=== PATIENT | male | born 1960 | race Caucasian/White ===

== ENCOUNTER 2016-08-23 12:25 | Emergency (ER) | payer OTHER ==
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
--- NOTE | 2016-08-23 14:10 | ED NURSING NOTES ---
Clinical Report - Nurses [facility] [address] [place] [address] 08/23/2016 12:29 Patient: TERRI LEAL TRIAGE Acuity: LEVEL 3. Chief Complaint: COUGH, RUNNY NOSE and SORE THROAT. Alert. No acute distress. SEPSIS SCREEN: Sepsis Screen. Negative (no infection suspected/documented). --13:08 Ana Hess R.N. 13:02 08/23/16. BP: 167/97. HR: 73. RR: 20. O2 saturation: 100%. Temp: 98.2 F (oral). --13:08 Ana Hess R.N. Weight: 104.3 kg stated. Height/Length: 69 inches Per Patient. BMI: 34. --13:07 Ana Hess R.N. Medications None. --13:03 Ana Hess R.N. Medication/allergy information source: the patient. --13:08 Ana Hess R.N. Allergies No Known Drug Allergy. --13:03 Ana Hess R.N. History Arrived by private vehicle, and accompanied by friend. Primary physician ([facility]). Onset. (4 days ago). ( Pt stating he need pain medication and he is not getting any pain medication from any of the doctors he has been seeing. He states he "Hurts all over. I am tired of being treated by incompetent people." Pt is very uncooperative and angry. Pt is swearing and refusing to get into gown.). Reports muscle aches. He has had a headache. PAST MEDICAL HX: Immunizations: seasonal influenza. SOCIAL HX: Never smoker. No alcohol use or drug use. FALL RISK ASSESSMENT: Fall risk assessment completed. No fall risk identified. NUTRITIONAL RISK ASSESSMENT: The nutritional risk assessment revealed no deficiencies. FUNCTIONAL ASSESSMENT: Functional assessment: no impairments noted. LEARNING NEEDS ASSESSMENT: The learning needs assessment revealed no barriers. SKIN INTEGRITY ASSESSMENT: Skin integrity risk assessment completed. No skin integrity risk identified. --13:08 Ana Hess R.N. PROBLEMS: Depression. Hypertension. Knee Injury. Knee Effusion. --13:03 Ana Hess R.N. Interventions ID band on patient. To treatment room. --13:08 Ana Hess R.N. PHYSICAL ASSESSMENT 13:08/23/16. Ambulatory to room. GENERAL / NEURO / PSYCH: The patient is awake, alert and in no distress. He is oriented, hostile and combative and appears agitated. HEENT: Voice within normal limits. Mucous membranes are pink. RESPIRATORY: Respirations not labored. CVS: Capillary refill less than 2 seconds. SKIN: Skin is warm and dry. Normal skin turgor. --13:09 Ana Hess R.N. NURSING PROGRESS NOTES 13:08/23/16. Patient refused to place gown on. Call light placed in reach. Patient placed in chair. Patient ready for evaluation- chart flagged. --13:09 Ana Hess R.N. 14:10 08/23/2016 Azithromycin PO 500 mg given. Allergies verified and confirmed 5 rights. --14:20 Ana Hess R.N. DISPOSITION / DISCHARGE Departure time: 14:15 Aug 23 2016. Condition at departure: improved and stable. No learning barriers present. Reviewed medication(s) side effects, precautions, dosing and course information. Prescription(s) given to the patient. Patient verbalized understanding. Written instructions provided in Luxembourgish. The patient was discharged by the physician. He was discharged home. He left the Emergency Department ambulatory and via private vehicle. --14:38 Ana Hess R.N. 14:35 08/23/16. BP: 159/99. HR: 65. RR: 18. O2 saturation: 100% on room air. Temp: 98.8 F (oral). --14:38 Ana Hess R.N. Locked/Released at 08/23/2016 14:38 by Ana Hess R.N.
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
--- NOTE | 2016-08-23 14:10 | ED ORDER SUMMARY ---
..... Patient: TERRI LEAL OrderSheet [facility] VisitID: [id number] [address] [place] [address] 56y, M Registration Date/Time: 08/23/2016 ORDER SHEET Weight: 104.3 kg (stated) Allergies: No Known Drug Allergy GENERAL ORDERS: Rapid Influenza Screen (Nasal Pharyngeal) (VIDEO GAME DEVELOPER swab) Urgent (13:33 08/23/2016 [facility]) (Ack 13:55 LTapper) (14:02 MWinterer R.N.) Culture, Strep Screen Urgent (13:33 08/23/2016 [facility]) (Ack 13:55 LTapper) (14:02 MWinterer R.N.) Chest 2V Urgent (13:47 08/23/2016 [facility]) (Ack 13:55 LTapper) (14:05 MWinterer R.N.) MEDICATION ORDERS: Azithromycin PO 500 mg (NOW) [facility] (Ack 14:08 MWinterer R.N.) (14:20 MWinterer R.N.) IV FLUIDS: ORDER SHEET NOTES: [Electronically signed by Ana Hess R.N. (14:38 08/23/2016)] [Electronically signed by Juarez Randhawa DO (16:25 08/23/2016)] [Electronically locked/signed by Ana Hess R.N. (14:38 08/23/2016)]
--- NOTE | 2016-08-23 14:10 | ED ORDER SUMMARY ---
..... Patient: TERRI LEAL OrderSheet [facility] VisitID: [id number] [address] [place] [address] 56y, M Registration Date/Time: 08/23/2016 ORDER SHEET Weight: 104.3 kg (stated) Allergies: No Known Drug Allergy GENERAL ORDERS: Rapid Influenza Screen (Nasal Pharyngeal) (ANIMAL NUTRITIONIST swab) Urgent (13:33 08/23/2016 [facility]) (Ack 13:55 LTapper) (14:02 MWinterer R.N.) Culture, Strep Screen Urgent (13:33 08/23/2016 [facility]) (Ack 13:55 LTapper) (14:02 MWinterer R.N.) Chest 2V Urgent (13:47 08/23/2016 [facility]) (Ack 13:55 LTapper) (14:05 MWinterer R.N.) MEDICATION ORDERS: Azithromycin PO 500 mg (NOW) (14:08 08/23/2016 [facility] (Ack 14:08 MWinterer R.N.) (14:20 MWinterer R.N.) IV FLUIDS: ORDER SHEET NOTES: [Electronically signed by Ana Hess R.N. (14:38 08/23/2016)] [Electronically signed by Juarez Randhawa DO (16:25 08/23/2016)] [Electronically locked/signed by Ana Hess R.N. (14:38 08/23/2016)]
--- NOTE | 2016-08-23 15:16 | DIAGNOSTIC IMAGING REPORT ---
PROCEDURE: XR CHEST 2 VIEW INDICATION: COUGH, initial encounter TECHNIQUE: PA and lateral view. COMPARISON: None. FINDINGS: Lungs are clear. Right pleural thickening. Median sternotomy. Bony thorax is unremarkable. IMPRESSION: 1. No acute changes 2. Median sternotomy
--- NOTE | 2016-08-23 16:25 | ED DISCHARGE INSTRUCTIONS ---
Patient: TERRI LEAL General Instructions [facility] VisitID: [id number] [address] [place] [address] 56y, M Registration Date/Time: 08/23/2016 Moderate dental pain. Acute viral pharyngitis Acute viral (presumed) rhinitis and sinusitis. Psychophysiologic insomnia. INSTRUCTIONS Do not work for three days. Drink plenty of fluids. No alcohol until released. Warnings: Further evaluation is necessary in order to recheck abnormal lab, obtain test results, conduct further tests and assess the possibility of serious illness. It is very important to follow up with a physician. CONTROLLED SUBSTANCE WARNINGS. GENERAL WARNINGS: Return or contact your physician immediately if your condition worsens or changes unexpectedly, if not improving as expected, or if other problems arise. Prescription Medications: Hydrocodone/APAP 5mg / 325mg: take 1 orally every 8 hours as needed for pain. Dispense five (5). No refill. Zithromax 250 mg tablets: take 1 orally every day for 4 days. No refills. Substitution is permissible. Ambien 10 mg: take 1 orally at bedtime as needed for sleep. Dispense five (5). No refill. Substitution is permissible. OTC Medications: Motrin (available over the counter): take according to label instructions. Follow-up: Follow up with a dentist and an oral surgeon in about three days. Follow-up with: [facility], , , [address] [place] [address], , [place], ; [facility], , , [address], [place], [id number] Follow up in about three days. ADDITIONAL INFORMATION Dental Pain A crack or cavity in the tooth, which exposes the sensitive inner area of the tooth can cause tooth pain. An infection in the gum or the root of the tooth can cause pain and swelling. The pain is often made worse by drinking hot or cold fluids, or biting on hard foods. Pain may spread from the tooth to the ear or jaw on the same side. Home Care: Avoid hot and cold foods and liquids since your tooth may be sensitive to temperature changes. If your tooth is chipped or cracked, or if there is a large open cavity, apply OIL OF CLOVES (available qvnv-fly-aadshgi in drug stores) directly to the tooth to reduce pain. Some pharmacies carry an zwbv-ghs-ekqloln "toothache kit." This contains a paste, which can be applied over the exposed tooth to decrease sensitivity. A cold pack on your jaw over the sore area may help reduce pain. You may use acetaminophen (Tylenol) or ibuprofen (Motrin, Advil) to control pain, unless another medicine was prescribed. [ NOTE: If you have chronic liver or kidney disease or ever had a stomach ulcer or GI bleeding, talk with your doctor before using these medicines.] If you have signs of an infection, an antibiotic will be given. Take it as directed. Follow-Up as directed with a dentist. Your pain may go away with the treatment given. However, only a dentist can fully evaluate and treat the cause and prevent the pain from coming back again. TOOTHACHE IS A SIGN OF DISEASE IN YOUR TOOTH AND SHOULD BE EXAMINED AND TREATED BY A DENTIST. Get Prompt Medical Attention if any of the following occur: Your face becomes swollen or red Pain worsens or spreads to the neck Fever over 100.4 F (38.0 C) Unusual drowsiness; headache or stiff neck; weakness or fainting Pus drains from the tooth Difficulty swallowing or breathing Pharyngitis: Strep [Confirmed] Your test for strep throat was positive. Strep throat is a contagious illness. It is spread by coughing, kissing or by touching others after touching your mouth or nose. Symptoms include throat pain which is worse with swallowing, aching all over, headache and fever. You will be treated with an antibiotic which should make you start to feel better within 1-2 days. Home Care: Rest at home and drink plenty of fluids to avoid dehydration. No school or work for the first two days on antibiotics. You will not be contagious after this time and if you are feeling better, you can return to school or work. Take your antibiotics for a full 10 days, even if you feel better after the first few days of treatment. This is very important to prevent heart or kidney disease that can result as a complication of untreated strep throat infection. Children: Use acetaminophen (Tylenol) for fever, fussiness or discomfort. In infants over six months of age, you may use ibuprofen (Children's Motrin) instead of Tylenol. [NOTE: If your child has chronic liver or kidney disease or ever had a stomach ulcer or GI bleeding, talk with your doctor before using these medicines.] (Aspirin should never be used in anyone under 18 years of age who is ill with a fever. It may cause severe liver damage.)Adults: You may use acetaminophen (Tylenol) or ibuprofen (Motrin, Advil) to control pain or fever, unless another medicine was prescribed for this. [NOTE: If you have chronic liver or kidney disease or ever had a stomach ulcer or GI bleeding, talk with your doctor before using these medicines.] Throat lozenges or sprays (Chloraseptic and others) will reduce pain. Gargling with warm salt water will also reduce throat pain. Dissolve 1/2 teaspoon of salt in 1 glass of warm water. This is especially useful just before meals. Follow Up with your doctor or as directed by our staff if you are not improving over the next week. Get Prompt Medical Attention if any of the following occur: Fever of 100.4F (38C) oral or higher, not better with fever medication New or worsening ear pain, sinus pain or headache Painful lumps in the back of your neck Unable to swallow liquids or open your mouth wide due to throat pain Trouble breathing or noisy breathing Muffled voice New rash Viral Respiratory Illness [Adult] You have an Upper Respiratory Illness (URI) caused by a virus. This illness is contagious during the first few days. It is spread through the air by coughing and sneezing or by direct contact (touching the sick person and then touching your own eyes, nose or mouth). Most viral illnesses go away within 7-10 days with rest and simple home remedies. Sometimes, the illness may last for several weeks. Antibiotics will not kill a virus and are generally not prescribed for this condition. Home Care: 1) If symptoms are severe, rest at home for the first 2-3 days. When you resume activity, don't let yourself get too tired. 2) Avoid being exposed to cigarette smoke (yours or others). 3) Tylenol (acetaminophen) or ibuprofen (Advil, Motrin) will help fever, muscle aching and headache. (Persons under 18 with fever should not take aspirin since this may cause liver damage.) 4) Your appetite may be poor, so a light diet is fine. Avoid dehydration by drinking 6-8 glasses of fluids per day (water, soft drinks, juices, tea, soup). Extra fluids will help loosen secretions in the nose and lungs. 5) Djxj-vfw-utfuyzr cold medicines will not shorten the length of time youre sick, but they may be helpful for the following symptoms: cough (Robitussin DM); sore throat (Chloraseptic lozenges or spray); nasal and sinus congestion (Actifed, Sudafed, Chlortrimeton). Follow Up with your doctor or as advised if you dont improve over the next week. Get Prompt Medical Attention if any of the following occur: -- Cough with lots of colored sputum (mucus) or blood in your sputum -- Chest pain, shortness of breath, wheezing or have trouble breathing -- Severe headache; face, neck or ear pain -- Fever over 100.4 F (38.0 C) for more than three days -- You cant swallow due to throat pain Insomnia Insomnia refers to a difficulty going to sleep or staying asleep, or both. Insomnia has many causes, including anxiety, stress, depression, chronic pain, sleeping cycles out of balance due to working night shifts or excess napping during the day, and a condition called sleep apnea. Insomnia can be a side effect from stimulant medicines such as decongestants, asthma inhalers and pills, diet pills, and illegal drugs such as speed, crank, crack, and PCP. Home Care: Review your medicines with your doctor or pharmacist to find out if they can cause insomnia. Caffeine, smoking and alcohol also affect sleep. Limit your daily use and do not use these before bedtime. Alcohol may make you sleepy at first, but as its effects wear off, you may awaken a few hours later and have trouble returning to sleep. Do not exercise, eat or drink large amounts of liquid within 2 hours of your bedtime. Improve your sleep habits. Have a fixed bed and wake-up time. Try to keep noise, light and heat in your bedroom at a comfortable level. Try using earplugs or eyeshades if needed. Avoid watching TV in bed. If you do not fall asleep within 30 minutes, try to relax by reading or listening to soft music. Limit daytime napping to one 30 minute period, early in the day. Get regular exercise. Find other ways to lessen your stress level. If a medicine was prescribed to help reset your sleep patterns, take it as directed. Sleeping pills are intended for short-term use, only. If taken for too long, the effect wears off while the risk of physical addiction and psychological dependence increases. Follow-Up with your doctor or as directed by our staff if you feel that your insomnia is not responding to the above measures. Get Prompt Medical Attention if any of the following occur: Extreme restlessness or irritability Confusion or hallucinations (seeing or hearing things that are not there) Anxiety, depression Several days without sleeping Azithromycin Oral tablet What is this medicine? AZITHROMYCIN (az ith yovani MYE sin) is a macrolide antibiotic. It is used to treat or prevent certain kinds of bacterial infections. It will not work for colds, flu, or other viral infections. How should I use this medicine? Take this medicine by mouth with a full glass of water. Follow the directions on the prescription label. The tablets can be taken with food or on an empty stomach. If the medicine upsets your stomach, take it with food. Take your medicine at regular intervals. Do not take your medicine more often than directed. Take all of your medicine as directed even if you think your are better. Do not skip doses or stop your medicine early. Talk to your volunteer patient representative regarding the use of this medicine in children. Special care may be needed. What side effects may I notice from receiving this medicine? Side effects that you should report to your doctor or health home care and home health aides teacher as soon as possible: allergic reactions like skin rash, itching or hives, swelling of the face, lips, or tongue confusion, nightmares or hallucinations dark urine difficulty breathing hearing loss irregular heartbeat or chest pain pain or difficulty passing urine redness, blistering, peeling or loosening of the skin, including inside the mouth white patches or sores in the mouth yellowing of the eyes or skin Side effects that usually do not require medical attention (report to your doctor or health home care and home health aides teacher if they continue or are bothersome): diarrhea dizziness, drowsiness headache stomach upset or vomiting tooth discoloration vaginal irritation What may interact with this medicine? Do not take this medicine with any of the following medications: lincomycin This medicine may also interact with the following medications: amiodarone antacids cyclosporine digoxin magnesium nelfinavir phenytoin warfarin What if I miss a dose? If you miss a dose, take it as soon as you can. If it is almost time for your next dose, take only that dose. Do not take double or extra doses. Where should I keep my medicine? Keep out of the reach of children. Store at room temperature between 15 and 30 degrees C (59 and 86 degrees F). Throw away any unused medicine after the expiration date. What should I tell my health care provider before I take this medicine? They need to know if you have any of these conditions: kidney disease liver disease irregular heartbeat or heart disease an unusual or allergic reaction to azithromycin, erythromycin, other macrolide antibiotics, foods, dyes, or preservatives or trying to get breast-feeding What should I watch for while using this medicine? Tell your doctor or health home care and home health aides teacher if your symptoms do not improve. Do not treat diarrhea with over the counter products. Contact your doctor if you have diarrhea that lasts more than 2 days or if it is severe and watery. This medicine can make you more sensitive to the sun. Keep out of the sun. If you cannot avoid being in the sun, wear protective clothing and use sunscreen. Do not use sun lamps or tanning beds/booths. Zolpidem Tartrate Oral tablet What is this medicine? ZOLPIDEM (zole PI dem) is used to treat insomnia. This medicine helps you to fall asleep and sleep through the night. How should I use this medicine? Take this medicine by mouth with a glass of water. Follow the directions on the prescription label. It is better to take this medicine on an empty stomach and only when you are ready for bed. Do not take your medicine more often than directed. If you have been taking this medicine for several weeks and suddenly stop taking it, you may get unpleasant withdrawal symptoms. Your doctor or health home care and home health aides teacher may want to gradually reduce the dose. Do not stop taking this medicine on your own. Always follow your doctor or health home care and home health aides teacher's advice. A special MedGuide will be given to you by the pharmacist with each prescription and refill. Be sure to read this information carefully each time. Talk to your volunteer patient representative regarding the use of this medicine in children. Special care may be needed. What side effects may I notice from receiving this medicine? Side effects that you should report to your doctor or health home care and home health aides teacher as soon as possible: allergic reactions like skin rash, itching or hives, swelling of the face, lips, or tongue changes in vision confusion depressed mood feeling faint or lightheaded, falls hallucinations problems with balance, speaking, walking restlessness, excitability, or feelings of agitation unusual activities while asleep like driving, eating, making phone calls Side effects that usually do not require medical attention (report to your doctor or health home care and home health aides teacher if they continue or are bothersome): diarrhea dizziness, or daytime drowsiness, sometimes called a hangover effect headache What may interact with this medicine? herbal medicines like kava kava, melatonin, Patti's wort and valerian medicines for fungal infections like ketoconazole, fluconazole, or itraconazole medicines for treating depression or other mental problems other medicines given for sleep some medicines for Parkinson' s disease or other movement disorders some medicines used to treat HIV infection or AIDS, like ritonavir What if I miss a dose? This does not apply. This medicine should only be taken immediately before going to sleep. Do not take double or extra doses. Where should I keep my medicine? Keep out of the reach of children. This medicine can be abused. Keep your medicine in a safe place to protect it from theft. Do not share this medicine with anyone. Selling or giving away this medicine is dangerous and against the law. Store at room temperature between 20 and 25 degrees C (68 and 77 degrees F). Throw away any unused medicine after the expiration date. What should I tell my health care provider before I take this medicine? They need to know if you have any of these conditions: depression history of a drug or alcohol abuse problem liver disease lung or breathing disease suicidal thoughts an unusual or allergic reaction to zolpidem, other medicines, foods, dyes, or preservatives or trying to get breast-feeding What should I watch for while using this medicine? Visit your doctor or health home care and home health aides teacher for regular checks on your progress. Keep a regular sleep schedule by going to bed at about the same time each night. Avoid caffeine-containing drinks in the evening hours. When sleep medicines are used every night for more than a few weeks, they may stop working. Talk to your doctor if you still have trouble sleeping. Do not take this medicine unless you are able to get a full night's sleep before you must be active again. You may not be able to remember things that you do in the hours after you take this medicine. Some people have reported driving, making phone calls, or preparing and eating food while asleep after taking sleep medicine. Take this medicine right before going to sleep. Tell your doctor if you are have any problems with your memory. After you stop taking this medicine, you may have trouble falling asleep. This is called rebound insomnia. This problem usually goes away on its own after 1 or 2 nights. You may get drowsy or dizzy. Do not drive, use machinery, or do anything that needs mental alertness until you know how this medicine affects you. Do not stand or sit up quickly, especially if you are an older patient. This reduces the risk of dizzy or fainting spells. Alcohol may interfere with the effect of this medicine. Avoid alcoholic drinks. This medicine may cause a decrease in mental alertness the morning after use, even if you feel that you are fully awake. Tell your doctor if you will need to perform activities requiring full alertness, such as driving, the next morning after you have taken this medicine. If you or your family notice any changes in your behavior, or if you have any unusual or disturbing thoughts, call your doctor right away. Ibuprofen Oral tablet What is this medicine? IBUPROFEN (eye BYOO proe fen) is a non-steroidal anti-inflammatory drug (NSAID). It is used for dental pain, fever, headaches or migraines, osteoarthritis, rheumatoid arthritis, or painful monthly periods. It can also relieve minor aches and pains caused by a cold, flu, or sore throat. How should I use this medicine? Take this medicine by mouth with a glass of water. Follow the directions on the prescription label. Take this medicine with food if your stomach gets upset. Try to not lie down for at least 10 minutes after you take the medicine. Take your medicine at regular intervals. Do not take your medicine more often than directed. A special MedGuide will be given to you by the pharmacist with each prescription and refill. Be sure to read this information carefully each time. Talk to your volunteer patient representative regarding the use of this medicine in children. Special care may be needed. What side effects may I notice from receiving this medicine? Side effects that you should report to your doctor or health home care and home health aides teacher as soon as possible: allergic reactions like skin rash, itching or hives, swelling of the face, lips, or tongue black or bloody stools, blood in the urine or in vomit breathing problems changes in vision chest pain general ill feeling or flu-like symptoms nausea or vomiting redness, blistering, peeling or loosening of the skin, including inside the mouth slurred speech or weakness on one side of the body stomach pain unexplained weight gain or swelling unusually weak or tired yellowing of eyes or skin Side effects that usually do not require medical attention (report to your doctor or health home care and home health aides teacher if they continue or are bothersome): constipation or diarrhea dizziness gas or heartburn stomach upset What may interact with this medicine? Do not take this medicine with any of the following medications: cidofovir ketorolac methotrexate pemetrexed This medicine may also interact with the following medications: alcohol aspirin diuretics lithium other drugs for inflammation like prednisone warfarin What if I miss a dose? If you miss a dose, take it as soon as you can. If it is almost time for your next dose, take only that dose. Do not take double or extra doses. Where should I keep my medicine? Keep out of the reach of children. Store at room temperature between 15 and 30 degrees C (59 and 86 degrees F). Keep container tightly closed. Throw away any unused medicine after the expiration date. What should I tell my health care provider before I take this medicine? They need to know if you have any of these conditions: asthma cigarette smoker drink more than 3 alcohol containing drinks a day heart disease or circulation problems such as heart failure or leg edema (fluid retention) high blood pressure kidney disease liver disease stomach bleeding or ulcers an unusual or allergic reaction to ibuprofen, aspirin, other NSAIDS, other medicines, foods, dyes, or preservatives or trying to get breast-feeding What should I watch for while using this medicine? Tell your doctor or healthcare professional if your symptoms do not start to get better or if they get worse. This medicine does not prevent heart attack or stroke. In fact, this medicine may increase the chance of a heart attack or stroke. The chance may increase with longer use of this medicine and in people who have heart disease. If you take aspirin to prevent heart attack or stroke, talk with your doctor or health home care and home health aides teacher. Do not take other medicines that contain aspirin, ibuprofen, or naproxen with this medicine. Side effects such as stomach upset, nausea, or ulcers may be more likely to occur. Many medicines available without a prescription should not be taken with this medicine. This medicine can cause ulcers and bleeding in the stomach and intestines at any time during treatment. Ulcers and bleeding can happen without warning symptoms and can cause . To reduce your risk, do not smoke cigarettes or drink alcohol while you are taking this medicine. You may get drowsy or dizzy. Do not drive, use machinery, or do anything that needs mental alertness until you know how this medicine affects you. Do not stand or sit up quickly, especially if you are an older patient. This reduces the risk of dizzy or fainting spells. This medicine can cause you to bleed more easily. Try to avoid damage to your teeth and gums when you brush or floss your teeth. You have been given the following additional information: Dental Pain Pharyngitis, Strep (Confirmed) Uri, Viral, No Abx (Adult) Insomnia Azithromycin Oral tablet Zolpidem Tartrate Oral tablet Ibuprofen Oral tablet Do not work for three days. (Electronically signed by Juarez Randhawa DO 08/23/2016 16:25)
--- NOTE | 2016-08-23 16:25 | ED MAR SUMMARY ---
..... Medication Administration Record [facility] [address] [place] [address] Patient: TERRI LEAL Visit ID: [id number] 56y, M Weight: 104.3 kg Height/Length: 69 in BMI: 34 ALLERGIES: No Known Drug Allergy Given 14:10 08/23/2016 Ana Hess R.N. Medication Administered: AZITHROMYCIN [PO], Dose: 500 mg PO. Medication Ordered: Azithromycin PO 500 mg (NOW).
--- NOTE | 2016-08-23 16:25 | ED MED RECONCILIATION SUMMARY ---
Patient: TERRI LEAL Medication Reconciliation Report [facility] VisitID: [id number] [address] [place] [address] 56y, M Registration Date/Time: 08/23/2016 Weight: 104.3 kg Height/Length: 69 in. BMI: 34.0 ALLERGIES: No Known Drug Allergy The patient's Home Medications are listed below: NONE. The source(s) of the original Home Medication information: patient The following Medications were given to the patient in the Emergency Department: Azithromycin [PO] PO 500 mg, administered: 08/23/2016 2:10:00 PM The following Medications were prescribed to the patient: Motrin (available over the counter): take according to label instructions. -- Juarez Randhawa DO Hydrocodone/APAP 5mg / 325mg: take 1 orally every 8 hours as needed for pain. Dispense five (5). No refill. -- Juarez Randhawa DO Zithromax 250 mg tablets: take 1 orally every day for 4 days. No refills. Substitution is permissible. -- Juarez Randhawa DO Ambien 10 mg: take 1 orally at bedtime as needed for sleep. Dispense five (5). No refill. Substitution is permissible. -- Juarez Randhawa DO
--- NOTE | 2016-08-23 16:25 | ED MAR SUMMARY ---
..... Medication Administration Record [facility] [address] [place] [address] Patient: TERRI LEAL Visit ID: [id number] 56y, M Weight: 104.3 kg Height/Length: 69 in BMI: 34 ALLERGIES: No Known Drug Allergy Given 14:10 08/23/2016 Ana Hess R.N. Medication Administered: AZITHROMYCIN [PO], Dose: 500 mg PO. Medication Ordered: Azithromycin PO 500 mg (NOW).
--- NOTE | 2016-08-23 16:25 | ED MED RECONCILIATION SUMMARY ---
Patient: TERRI LEAL Medication Reconciliation Report [facility] VisitID: [id number] [address] [place] [address] 56y, M Registration Date/Time: 08/23/2016 Weight: 104.3 kg Height/Length: 69 in. BMI: 34.0 ALLERGIES: No Known Drug Allergy The patient's Home Medications are listed below: NONE. The source(s) of the original Home Medication information: patient The following Medications were given to the patient in the Emergency Department: Azithromycin [PO] PO 500 mg, administered: 08/23/2016 2:10:00 PM The following Medications were prescribed to the patient: Motrin (available over the counter): take according to label instructions. -- Juarez Randhawa DO Hydrocodone/APAP 5mg / 325mg: take 1 orally every 8 hours as needed for pain. Dispense five (5). No refill. -- Juarez Randhawa DO Zithromax 250 mg tablets: take 1 orally every day for 4 days. No refills. Substitution is permissible. -- Juarez Randhawa DO Ambien 10 mg: take 1 orally at bedtime as needed for sleep. Dispense five (5). No refill. Substitution is permissible. -- Juarez Randhawa DO
== END 2016-08-23 14:15 | disposition home or self-care (01) ==
LOC: ED SRH 12:25
DX: J02.0 Streptococcal pharyngitis (principal); B95.0 Streptococcus, group A, as the cause of diseases classified elsewhere; K08.89 Other specified disorders of teeth and supporting structures; J00 Acute nasopharyngitis [common cold]; J01.90 Acute sinusitis, unspecified; F51.04 Psychophysiologic insomnia; G47.9 Sleep disorder, unspecified; I10 Essential (primary) hypertension
CPT/HCPCS: 90154; 91400